=== PATIENT | female | born 1995 | race American Indian/Alaskan Native ===

== ENCOUNTER 2020-10-24 13:06 | Inpatient (IN) | payer OTHER ==
[~2020-10-24] VITALS: Ht 170.2 cm; Wt 92.5 kg
[2020-10-24] MEDS ORDERED: PRENATAL CAPLE1 EAC1 PO (14:18)
[2020-10-24] MEDS ORDERED: PRENATAL TABLE1 EAC1 PO (14:47)
== END 2020-10-26 13:21 | disposition home or self-care (01) | DRG 807 ==
LOC: LDR 13:06 → OB/GYN 13:06
PROVIDERS: ADMIT Obstetrics & Gynecology; ATTEND Obstetrics & Gynecology
PROC: 10E0XZZ Delivery of Products of Conception, External Approach (ICD-10-PCS; principal; 2020-10-24)
PROC: 0W8NXZZ Division of Female Perineum, External Approach (ICD-10-PCS; 2020-10-24)
PROC: 4A1HXFZ Monitoring of Products of Conception, Cardiac Rhythm, External Approach (ICD-10-PCS; 2020-10-24)
DX: O80 Encounter for full-term uncomplicated delivery (principal); Z37.0 Single live birth; Z3A.39 39 weeks gestation of pregnancy; Z20.822 Contact with and (suspected) exposure to COVID-19